=== PATIENT | female | born 1985 | race African-American/Black ===

== ENCOUNTER 2024-11-27 14:44 | Emergency (ER) | payer MEDICAID ==
[~2024-11-27] VITALS: Ht 165.1 cm; Wt 81.8 kg
[2024-11-27 14:54] VITALS: O2SAT 98
[2024-11-27 16:59] VITALS: TEMP 37.1
[2024-11-27 18:30] VITALS: BP 171/94; PULSE 87; RESP 18; O2SAT 99
== END 2024-11-27 18:32 | disposition home or self-care (01) ==
LOC: ER 14:44
DX: H61.22 Impacted cerumen, left ear (principal); I10 Essential (primary) hypertension; Z98.890 Other specified postprocedural states
CPT/HCPCS: 99281